=== PATIENT | female | born 1995 | race Two or more races ===

== ENCOUNTER 2019-06-12 14:12 | Outpatient (CLI) | payer MEDICAID ==
[~2019-06-12] VITALS: Ht 152.4 cm; Wt 54.9 kg
[2019-06-12 15:31] VITALS: BP 113/70
[2019-06-12] MEDS ORDERED: SRONYX PO (15:31)
[2019-06-12] MEDS ORDERED: PRILOSEC OTC20 MG ORAL (15:31)
[2019-06-12] MEDS ORDERED: HUMIRA40 MG/0.2 SUBQ (15:31)
--- NOTE | 2019-06-13 00:15 | Consultation ---
DATE OF CONSULTATION: 06/12/2019 CHIEF COMPLAINT: Abdominal pain. HISTORY OF PRESENT ILLNESS: This is a very pleasant 24-year-old female with a history of ankylosing spondylitis on Humira, presented to our office complaining of epigastric abdominal pain. She took Prilosec for two weeks related to heartburn symptoms but the pain was persistent. The patient had a stool study for H. pylori which was negative. She is concerned about epigastric pain and . PAST MEDICAL HISTORY: 1. History of IBS. 2. Ankylosing spondylitis. MEDICATIONS: 1. Humira. 2. Prilosec. FAMILY HISTORY: Mother had colon cancer at age 49. SOCIAL HISTORY: The patient denies any tobacco, alcohol, or drug abuse. ALLERGIES: To aspirin. MEDICATIONS: Please see medication reconciliation list. REVIEW OF SYSTEMS: Positive for abdominal pain, GERD, and rectal bleeding when she goes to the toilet and she wipes herself. PHYSICAL EXAMINATION: VITAL SIGNS: Temperature 98, pulse 67, respirations 20, and blood pressure is 120/70. HEENT: Normocephalic and atraumatic. Sclerae anicteric. NECK: Supple. No evidence of obvious lymphadenopathy. CARDIOVASCULAR: Regular rate and rhythm. Plus S1 and S2. No obvious murmur. LUNGS: Clear to auscultation bilaterally. ABDOMEN: Soft and nontender. No rebound. No guarding. No peritoneal sign. EXTREMITIES: No cyanosis. No clubbing. No edema. ASSESSMENT: The patient is a 24-year-old female with ankylosing spondylitis on Humira with epigastric pain. Given negative stool for H. pylori, given no complete response to Prilosec, we recommend the patient to get an endoscopy. We will try to get authorization. Meanwhile, the patient was told to continue on Prilosec and Humira. We will add Anusol-HC for hemorrhoids. The patient also was given VSL#3 probiotics. We will do endoscopy and have her follow up after that. Eligio Farrell M.D. DR: Marina JOB#: [id number] CC:
== END 2019-06-12 16:00 | disposition home or self-care (01) ==
LOC: PAN 14:12
DX: R10.9 Unspecified abdominal pain (principal); M45.9 Ankylosing spondylitis of unspecified sites in spine; K21.9 Gastro-esophageal reflux disease without esophagitis; K62.5 Hemorrhage of anus and rectum; Z79.899 Other long term (current) drug therapy